=== PATIENT | female | born 1935 | race American Indian/Alaskan Native ===

== ENCOUNTER 2018-05-25 06:49 | Day surgery (SDC) | payer MEDICARE, OTHER ==
[2018-05-25 07:30] VITALS: TEMP 97.7
--- NOTE | 2018-05-25 08:31 | CP.SDSHP ---
Same Day Surgery H & P - History Proposed Procedure: colonoscopy Pre-Op Diagnosis: change in bowels - Previous Medical/Surgical History Comments: diverticulosis - Allergies Allergies: Allergies No Known Allergies Allergy (Verified 05/23/18 13:07) - Physical Exam Vital Signs: Vital Signs 05/25/18 07:00 Temperature 97.7 F Pulse Rate 57 L Respiratory 19 Rate Blood Pressure 138/59 L O2 Sat by Pulse 99 Oximetry Mental Status: Alert & Oriented x3 Neuro: WNL Heart: WNL Lungs: WNL GI: WNL - {Optional Preform as Required} Abdomen: WNL - Impression Impression: change in bowels Pt. Evaluated Today:Candidate for Anesthesia & Procedure: Yes - Date & Time Date: 05/25/18 Time: 08:20 Short Stay Discharge - Short Stay Discharge Admitting Diagnosis/Reason for Visit: CHANGE IN BOWELS HABIT Disposition: HOME/ ROUTINE
[2018-05-25] MEDS ORDERED: Propofol 10 mg/ml Inj (20 ML) ONE (08:34)
[2018-05-25 09:34] VITALS: O2SAT 100
[2018-05-25 10:43] VITALS: BP 123/60; PULSE 61; RESP 16
== END 2018-05-25 10:30 | disposition home or self-care (01) ==
LOC: C.ENDO 06:49
PROVIDERS: ATTEND Internal Medicine Gastroenterology
DX: K63.5 Polyp of colon (principal); R19.4 Change in bowel habit; K57.90 Diverticulosis of intestine, part unspecified, without perforation or abscess without bleeding
CPT/HCPCS: 45380; 82948; 87045; 87177; 87209; 88305; J2704